=== PATIENT | female | born 2000 | race Two or more races ===

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

== ENCOUNTER → 2024-02-20 11:55 | Outpatient (RCR) | payer BC, SELFPAY ==
[2020-09-08 13:03] VITALS: BP 118/76; PULSE 115; RESP 12; TEMP 37.1; O2SAT 96; BMI 30.3
--- NOTE | 2020-09-08 14:14 | MHC.HEMONCMA ---
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 History reviewed and labs were reviewed with pt on her cell phone with provider. Pt to have telehealth visit in 3 weeks.
--- NOTE | 2020-09-08 16:06 | HE.ONCSEC ---
left message informing pt they need to call back and make a televist f/u in 3 weeks
--- NOTE | 2020-09-08 16:25 | PM.HEMONCCN ---
Subjective - Subjective Chief complaint: Consultation for: Mastocytosis. Patient: new to practice Consult date: 09/08/20 Requesting Physician: This is a pleasant unfortunate 20-year-old lady, who tells me that she started having symptoms at the age of 16. She was diagnosed with dysautonomia in 2016. Question was MCAS as well. She would develop whelps on her arms and legs out of no where. They would be large patches and were rather pruritic. Sometimes blood came out on itching. Recurrent lesion he started developing allergic reactions, but any known precipitating factor. Sometimes it could be related to fragrances or perfumes. Later on, it would develop after she ate certain foods. But she could not associate it with any particular diet. She only feels that white rice is safe. She would know that she is going to be developing symptoms once she developed abdominal cramping and diarrhea. If she took Benadryl right away it would stop the reaction from happening. She is now taking Benadryl 50 mg at start of moderate to severe reactions. Later on she had to start using EpiPen, about a year ago. She was started on cromolyn 06/2019, currently on 200 mg p.o. 5 times a day. Famotidine 20 mg p.o. b.i.d. She has had difficulty with H1 antagonists and not on regular daily it new were Otto H 1 antagonist currently. Fexofenadine a/w depression, cetirizine and Hydroxyzine, a/w insomnia. Xolair started 12/11: Appears to be helpful to decrease severity of symptoms. She would also have rapid heartbeat up to 180s. The reactions are becoming more severe as time goes by. She now develops tongue swelling or chest tightness as well. She has also noticed that they are getting more frequent and she develops them several times a month. Nasalcrom is helpful but does not last very long. She has had an extensive evaluation by Allergy/immunology. They have tried to determine her Tryptase levels, however usually after 4-5 hours of hypersensitivity reaction, it is usually normal. She has had altered donating diarrhea and constipation along with abdominal pain. Her appetite is not good. She has lost weight. She has been seen by GI at [facility] [place]. She has not had any upper endoscopy done. She was also seen at [facility]: Dr. Barr. She is being treated for SIEP be 0 empirically now. She was on amoxicillin. She was seen by Dr. Alexander, and diagnosed with EDS, hypermobile type. He prescribed ketotifen, a mast cell stabilizer might help her achiness and pain. In addition she has been diagnosed with peripheral neuropathy. She had symptoms of pain, burning and numbness from knees to feet and from elbows to hand. At times it was difficult for her to walk because feet did not feel the floor well. She had to use cane and other ambulatory aids because she was tripping often. She was diagnosed with SNF. She is undergoing IVIG treatments on a weekly basis under the care of Dr. Sandhu, in [place], for almost a year now. EDS: Negative based in mine technician evaluation more than a year ago. She has had increased anxiety after a spindle is a santiago and ICU stay with some flashbacks and nightmares. ROS: Flushing of skin: Face/neck/chest. Brain fog frequent, daily fatigue. Moderate headaches: Most days. Lightheadedness/vertigo. Tinnitus. Itchy eyes, sneezing, nasal passages feel dry, scratchy throat. Sensation of lump in the throat. Chest tightness and chest pain and shortness of breath. Nausea constant. Vomiting rare. Abdominal pain: Central and just under the umbilicus. Frequent gas/bloating. Numbness/tingling. Mostly normal bowel movements. 1-2 times a day diarrhea. HPI - Consult Narrative Narrative: Genie Schultz is a 20 year old female Review of Systems - Constitutional Reports system reviewed and no additional complaints, except as documented, Reports lack of energy, Reports malaise, Reports weight loss - Eyes Reports system reviewed and no additional complaints, except as documented - ENT Reports system reviewed and no additional complaints, except as documented, Reports headache(s), Reports nasal congestion, Reports nasal obstruction, Reports sore throat, Reports throat swelling, Reports tongue swelling - Cardiovascular Reports system reviewed and no additional complaints, except as documented - Respiratory Reports no additional respiratory complaints - Gastrointestinal Reports system reviewed and no additional complaints, except as documented - Genitourinary Reports no additional female genitourinary complaints - Musculoskeletal Reports system reviewed and no additional complaints, except as documented - Integumentary/Breasts Skin/Breast: Reports no additional skin complaints - Neurologic Reports system reviewed and no additional complaints, except as documented - Psychiatric Reports system reviewed and no additional complaints, except as documented - Endocrine Reports no additional endocrine complaints - Hematologic/Lymphatic Reports system reviewed and no additional complaints, except as documented - Allergic/Immunologic Reports system reviewed and no additional complaints, except as documented Oncology Screenings - ECOG Performance Status ECOG Performance Status: 0 [facility] Medical History: Medical History (Last Updated 09/08/20 @ 10:48 by Birgit Miranda) Abdominal distension Adenomyosis Adverse effect of unspecified drugs, medicaments and biological substances, initial encounter Asthma Dermatographic urticaria Diarrhea Flushing Generalized abdominal pain Hx of endometriosis Idiopathic urticaria Nausea Neuropathy Other fatigue Other mast cell activation disorder Other specified symptoms and signs involving the circulatory and respiratory systems Other urticaria Pain in unspecified joint SOB (shortness of breath) Trichotillomania Vomiting Functional capacity: independent ambulation Patient : No Family History: Family History (Last Updated 09/08/20 @ 13:13 by Birgit Miranda) Paternal Grandfather Diabetes Hypertension Maternal Grandfather Diabetes Maternal Grandfather No problems noted. Maternal Grandmother Breast cancer Surgical History: Surgical History (Last Updated 09/08/20 @ 13:10 by Birgit Miranda) Hx of adenoidectomy Hx of laparoscopy Hx of tonsillectomy Social History: Social History (Last Updated 09/08/20 @ 13:10 by Birgit Miranda) Alcohol History: Alcohol intake: never Alcohol History Details: Alcohol intake frequency: does not drink Tobacco History: Smoking Status: Never smoker Substance Use History: Use of substances other than those prescribed or required for medical reasons: No Nutrition Assessment: Patient : No Smoking status: Never smoker Home Medications and Allergies Home Medications Medication Instructions Recorded Confirmed Type cromolyn 2 ml INHALATION QID 09/08/20 09/08/20 History cromolyn 200 mg PO QID 09/08/20 09/08/20 History cromolyn [Nasalcrom] INTRANASAL 09/08/20 History epinephrine 0.3 mg IM Q10M PRN 09/08/20 09/08/20 History famotidine [Pepcid] 20 mg PO BID 09/08/20 09/08/20 History immune globulin(hum),capr(IgG) ml IV 09/08/20 09/08/20 History [Gamunex] melatonin 3 mg PO BEDTIME PRN 09/08/20 09/08/20 History methylprednisolone sodium succ 125 mg IM QAM 09/08/20 09/08/20 History [Solu-Medrol] omalizumab [Xolair] 150 mg SUBCUT Q2W 09/08/20 09/08/20 History ondansetron HCl [Zofran] 4 mg PO Q6H 09/08/20 09/08/20 History pyridostigmine bromide 60 mg PO TID 09/08/20 09/08/20 History sertraline mg 09/08/20 History Allergies Allergy/AdvReac Type Severity Reaction Status Date / Time adhesive Allergy Unknown Unverified 09/08/20 09:19 azelastine Allergy Unknown Unverified 09/08/20 09:19 citalopram Allergy Unknown Unverified 09/08/20 09:19 diphenhydramine Allergy Unknown Unverified 09/08/20 09:19 [From Benadryl] fexofenadine [From Quyen] Allergy Unknown Unverified 09/08/20 09:19 gabapentin Allergy Unknown Verified 09/08/20 09:19 methylprednisolone Allergy Unknown Unverified 09/08/20 09:19 [From Solu-Medrol] misoprostol Allergy Unknown Unverified 09/08/20 09:19 morphine Allergy Unknown Unverified 09/08/20 09:19 perfume Allergy Unknown Unverified 09/08/20 09:19 polyethylene glycol Allergy Unknown Unverified 09/08/20 09:19 potassium Allergy Unknown Verified 09/08/20 09:19 Physical Exam Vital signs: Vital Signs Temp 98.7 F 09/08/20 13:03 Pulse 115 H 09/08/20 13:03 Resp 12 09/08/20 13:03 BP 118/76 09/08/20 13:03 Pulse Ox 96 09/08/20 13:03 Intake & Output 09/07/20 09/08/20 09/08/20 18:59 06:59 18:59 Other: Weight 77.7 kg Weight in Grams 34762 Weight 77.7 kg - Constitutional Present: mild distress - Routine HEENT Exam Head: Present: normal inspection ENT: Present: mucous membranes moist - Routine Neck Exam Present: supple - Routine Respiratory Exam Present: CTAB - Routine Cardiovascular Exam Cardiovascular: Present: RRR, S1, S2 - Routine Abdominal Exam Present: soft, nontender - Routine Rectal Exam Patient deferred: visual exam - Routine Extremities Exam Present: nontender - Routine Back/Spine/Pelvis Exam Back/Spine: Present: full ROM - Routine Skin Exam Present: intact - Routine Neurological Exam Present: alert, oriented X3 - Detailed Neurological Exam: Coma Scale Eye Opening: Spontaneous (4) Verbal Response: Oriented (5) Motor Response: Obeys commands (6) Patience Coma Scale Total: 15 - Routine Psychiatric Exam Present: normal affect Assessment and Plan (1) Mastocytosis Status: Acute Database: From 08/18/2020: CBC: WBC 8.4, HGB 13, HCT 37.8, PLT 304. CMP: Lytes WNL, glue 82, BUN 5, EVENT SALES REPRESENTATIVE 0.5. LFTs: 0.3/90/23/24. TP 7.7, Per 9. This is a pleasant 20-year-old lady, with symptoms of hypersensitivity reactions/anaphylaxis, over the past 4 years. 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 Many of her symptoms are suggestive of that. 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 She has had baseline tryptase level which are normal: Ranging from 1.4-1.7. Normal urine PG. Elevated NMH of 221. On 04/13/2020. Hereditory alpha- tryptasemia is unlikely with a low baseline tryptase level. MCAS, is often secondary to Enviromental allergies/autoimmune conditions. She is allergic to PEG, so she is not a candidate for the current MRI any vaccine for COVID-19. Hopefully she can get the [employer]wayne [employer] Dwayne vaccine. PLAN: To proceed with a bone marrow exam for confirmation of the diagnosis. Will check C kit mutation, on the bone marrow. In view of her allergies and hypersensitivity reactions I am concerned about reaction to anesthetic agents. I did offer her bone marrow with or without anaesthesia. She will make up her mind in call me tomorrow. Will set it up according to her wishes. Will have a tele interview set up in 3 weeks time to go over the results. Thank you, CC: Dr. Montana Langford.
--- NOTE | 2020-09-12 10:23 | MHC.HEMONCMA ---
Pt called stating she spoke with Dr Oleary and that a bone marrow exam was scheduled for and she wants to know at what time. I didn't have any knowledge of this so I text Dr Oleary for more clarification. I will call pt as soon as I know more information.
--- NOTE | 2020-09-12 10:57 | MHC.HEMONCMA ---
Pt scheduled for @ 11 am was advised to eat light breakfast and to hold any blood thinners if she takes any.
--- NOTE | 2020-09-12 13:28 | MHC.HEMONC ---
Pt called to see if it is OK for her to receive IVIG (home infusion) the day after her bone marrow bx here in Clinic on . I checked with Dr Boudreaux (covering) and she said there should be no problem. I conveyed this to pt.
--- NOTE | 2020-09-12 14:47 | MHC.HEMONCMA ---
Hematology was notified of bone marrow bx in office by Tsering.
[2020-09-15 11:05] VITALS: BP 135/80; PULSE 108; RESP 12; TEMP 36.6; O2SAT 96; BMI 29.9
[2020-09-15] MEDS: Lidocaine 4 % Cream KIT 1 APPL TOPICAL (11:22)
[2020-09-15] MEDS: 0.9 % Sodium Chloride 500 ML 250 ML IVCONT (12:15)
--- NOTE | 2020-09-15 12:31 | HO.HEMONCPA ---
S/w Alyssa at [facility] who adv that bone marrow biopsy procedure does not require PA as long as medically necessary and that we have a valid referral on file. Confirmed with Brianna that we do indeed have referral.
[2020-09-15 13:05] VITALS: BP 114/56; PULSE 93; O2SAT 97
[2020-09-15] MEDS: Ibuprofen 400 MG TABLET PO (13:05)
--- NOTE | 2020-09-15 13:09 | PM.HEMONCBM ---
Bone Marrow Aspiration - Bone Marrow Aspiration Procedure:: *Service Date: [09/15/20] Bone marrow aspiration and biopsy. Pre Op Diagnosis:: Systemic mastocytosis. Post Op Diagnosis:: Same. Surgeon:: Jessica Oleary. Anesthesia:: Local. Consent:: Informed consent obtained from the patient for the procedure. Pros and cons of biopsy explained. The patient was willing to proceed with the procedure under local anesthesia. Procedure in Detail:: *Service Date: 09/15/2020. *Procedure: Bone marrow aspirate and biopsy. *Pre Op Dx: Mastocytosis. *Post Op Dx: Same. *Surgeon: Jessica Oleary. The patient was positioned in prone position. The left posterior superior iliac spine prepped and draped. Under aseptic precautions, 5 ml of 1% lidocaine used for local anesthesia. With the Jamshidi needle, a core biopsy obtained without any complications. The patient tolerated the procedure well. Bandage was applied and patient was positioned on her back for 10 to 15 minutes after the procedure. The patient was advised to call us if she develops any pain or swelling at the surgical site. Follow up in 2 weeks via tele visit.
--- NOTE | 2020-09-15 15:03 | MHC.HEMONC ---
Pt here for bone marrow aspiration and bx per Dr Oleary in Heme[facility]Onc Clinic. She had her own epipen available and pre-medicated with Benadryl as she is highly allergic to many substances. She had EMLA creme to site besides lidocaine. She was monitored throughout procedure and her aunt was at the bedside. She did quite well and her VSS. She stayed in clinic for one hour and received ibuprofen before leaving. She used ice pack here and has one for ride. She was told she can shower in 24 hr.
--- NOTE | 2020-10-06 13:40 | MHC.HEMONCMA ---
After trying to coordinate biopsy with patient she notified me that her block bolter mule operator which was the one who referred her advised her to place hold on procedure due to her medical instability. She stated that it would not be safe for her to go under anesthesia.
--- NOTE | 2020-12-13 10:11 | HO.HEMONCPA ---
PA FOR CT GUIDED BONE MARROW BX REQUESTED. AWAITING DECISION. WILL BOOK APPT. AFTER PA STATUS IS CONFIRMED.
--- NOTE | 2020-12-15 15:46 | MHC.HEMONC ---
BONE MARROW BX UNDER MAC BOOKED W/RADIOLOGY. APPT. IN PENDING STATUS. AWAITING FEEDBACK FROM RADIOLOGY.
== END | disposition home or self-care (01) ==
LOC: HO.ONC 09-08 12:36
PROVIDERS: PCP Pediatrics; Visit Provider Internal Medicine Medical Oncology
DX: D47.02 Systemic mastocytosis (principal)
CPT/HCPCS: 38221; 88305; 88311; 88313; 96361; J1642